=== PATIENT | male | born 1940 | race Caucasian/White ===

== ENCOUNTER 2024-02-19 11:03 | Inpatient (IN) | payer OTHER ==
[2024-02-19 12:10] LABS: #Basophils 0.09 10x3/uL (0.0-0.2); #Eosinphils 0.57 10x3/uL (0.0-0.5); #Monocytes 0.83 10x3/uL (0.0-1.1); %Basophils 1.2 % (0.0-2.0); %Eosinophils 7.7 % (0.0-6.0); %Lymphocytes 19.2 % (18.0-47.0); %Monocytes 11.2 % (0.0-10.0); %Neutrophils 60.4 % (40.0-75.0); Hematocrit 29.4 % (38.8-50.0); Hemoglobin 9.2 g/dL (13.5-17.5); Mean Corpuscular HGB CONC 31.3 g/dL (32.0-36.0); Mean Corpuscular Hemoglobin 28.5 pg (27.0-33.0); Mean Platelet Volume 9.4 fL (7.4-10.4); Platelet Count 194 10x3/uL (150-450); RBC Distribution Width 12.3 % (11.5-14.5); Red Blood Cell (RBC) Count 3.23 10x6/uL (4.32-5.72); White Blood Cell (WBC) Count 7.4 10x3/uL (3.5-10.5)
[2024-02-19 12:34] LABS: ALT (SGPT) 22 U/L (8-55); AST (SGOT) 21 U/L (5-34); Alkaline Phosphatase 52 U/L (40-110); Anion Gap 13 mmol/L (10-20); BUN (Urea Nitrogen) 59 mg/dL (8.4-25.7); Bilirubin, Total 0.3 mg/dL (0.2-1.2); Calc. Creatinine Clearance 0 mL/min (70-130); Calcium 9.4 mg/dL (7.8-10.44); Carbon Dioxide 19 mmol/L (23-31); Chloride 113 mmol/L (98-107); Estimated GFR 30; Globulin 3.6 g/dL (2.4-3.5); Glucose 168 mg/dL (83-110); Potassium 5.4 mmol/L (3.5-5.1); Protein, Total 6.6 g/dL (5.8-8.1); Sodium 140 mmol/L (136-145)
[2024-02-19] MEDS ORDERED: Insulin Regular, Human 100 UNIT/ML 10 ML VIAL ONE (14:03)
[2024-02-19] MEDS ORDERED: Acetaminophen 650 MG Suppository PR PRN (15:56)
[2024-02-19] MEDS ORDERED: Ondansetron ODT 4 MG TAB PO PRN (15:56)
[2024-02-19] MEDS ORDERED: Senokot S 8.6-50 MG TAB PO PRN (15:56)
[2024-02-19] MEDS ORDERED: Ondansetron PF 4 MG/2 ML Vial IVP PRN (15:56)
[2024-02-19] MEDS ORDERED: Acetaminophen 325 MG TAB PO PRN (15:56)
[2024-02-19] MEDS ORDERED: Glucagon 1 MG/ML KIT IM PRN (15:57)
[2024-02-19] MEDS ORDERED: Insulin Lispro 100 UNIT/ML 10 ML VIAL SC PRN (15:57)
[2024-02-19] MEDS ORDERED: Dextrose 5% in Water 1,000 ML IV PRN (15:57)
[2024-02-19 16:43] VITALS: BMI 29.2
[2024-02-19] MEDS: Lactated Ringer's 1,000 ML IV SCH (17:22)
[2024-02-19] MEDS: Piperacillin/Tazobactam 3.375 GM in Sodium Chloride 0.9% 100 ML IVPB SCH ×2 (17:23→21:57)
[2024-02-19] MEDS: Famotidine 20 MG TAB PO SCH (21:56)
[2024-02-19] MEDS: Heparin 5,000 UNITS/ML VIAL SC SCH (21:56)
[2024-02-19] MEDS: Clindamycin/D5W 600 MG in Premix 1 BAG IVPB SCH (22:16)
[2024-02-20 03:53] LABS: #Eosinphils 0.62 10x3/uL (0.0-0.5); #Monocytes 0.73 10x3/uL (0.0-1.1); #Neutrophils 3.03 10x3/uL (1.5-8.4); %Basophils 1.6 % (0.0-2.0); %Eosinophils 10.1 % (0.0-6.0); %Monocytes 11.9 % (0.0-10.0); %Neutrophils 49.2 % (40.0-75.0); Hematocrit 25.4 % (38.8-50.0); Hemoglobin 8.2 g/dL (13.5-17.5); Mean Corpuscular HGB CONC 32.3 g/dL (32.0-36.0); Mean Corpuscular Volume 89.8 fL (81.2-95.1); Mean Platelet Volume 9.6 fL (7.4-10.4); Platelet Count 176 10x3/uL (150-450); RBC Distribution Width 12.3 % (11.5-14.5); Red Blood Cell (RBC) Count 2.83 10x6/uL (4.32-5.72); White Blood Cell (WBC) Count 6.2 10x3/uL (3.5-10.5)
[2024-02-20 04:15] LABS: Anion Gap 14 mmol/L (10-20); BUN (Urea Nitrogen) 53 mg/dL (8.4-25.7); Calc. Creatinine Clearance 42 mL/min (70-130); Calcium 9.1 mg/dL (7.8-10.44); Carbon Dioxide 18 mmol/L (23-31); Chloride 114 mmol/L (98-107); Estimated GFR 35; Glucose 138 mg/dL (83-110); Potassium 4.8 mmol/L (3.5-5.1); Sodium 141 mmol/L (136-145)
[2024-02-20] MEDS: Dextrose 50% Abboject 50 ML SYRINGE SLOW IVP PRN (06:36)
[2024-02-20] MEDS ORDERED: Bupivacaine PF 0.5% 30 ML VIAL ONE (07:22)
[2024-02-20] MEDS ORDERED: fentaNYL 50 mcg/mL 1 mL Vial ONE (09:09)
[2024-02-20] MEDS ORDERED: Lidocaine 2% PF 5 ML VIAL ONE (09:09)
[2024-02-20] MEDS ORDERED: Ondansetron PF 4 MG/2 ML Vial ONE (09:09)
[2024-02-20] MEDS ORDERED: Dexamethasone 4 mg/ml Vial ONE (09:09)
[2024-02-20 16:59] VITALS: BMI 29.2
[2024-02-20] MEDS: Insulin Lispro 100 UNIT/ML 10 ML VIAL SC PRN (17:13)
[2024-02-20 21:35] VITALS: BP 162/79; TEMP 98.3
[2024-02-21] MEDS ORDERED: Calcitriol 0.25 MCG CAP PO SCH (09:00)
[2024-02-21] MEDS ORDERED: Glimepiride 4 MG TAB PO SCH (09:00)
[2024-02-21] MEDS ORDERED: hydrALAZINE 25 MG TAB PO SCH (09:00)
[2024-02-21] MEDS ORDERED: Terazosin HCl 5 MG CAP PO SCH (09:00)
[2024-02-21] MEDS ORDERED: Lisinopril 20 MG TAB PO SCH (09:00)
[2024-02-21] MEDS ORDERED: Furosemide 40 MG TAB PO SCH (09:00)
[2024-02-21] MEDS ORDERED: Spironolactone 25 MG TAB PO SCH (09:00)
[2024-02-21] MEDS ORDERED: Gabapentin 100 MG CAP PO SCH (09:00)
[2024-02-21] MEDS ORDERED: Amlodipine 10 MG TAB PO SCH (09:00)
== END 2024-02-20 20:45 | disposition home or self-care (01) | DRG 617 ==
LOC: CSHERS 11:03 → CSHTELE 16:38
PROVIDERS: ADMIT Family Medicine; ATTEND Nurse Practitioner Family
PROC: 0Y6Q0Z3 Detachment at Left 1st Toe, Low, Open Approach (ICD-10-PCS; principal; 2024-02-20)
DX: E11.69 Type 2 diabetes mellitus with other specified complication (principal); M86.9 Osteomyelitis, unspecified; E11.42 Type 2 diabetes mellitus with diabetic polyneuropathy; E11.22 Type 2 diabetes mellitus with diabetic chronic kidney disease; N18.30 Chronic kidney disease, stage 3 unspecified; I12.9 Hypertensive chronic kidney disease with stage 1 through stage 4 chronic kidney disease, or unspecified chronic kidney disease; L03.032 Cellulitis of left toe; E78.5 Hyperlipidemia, unspecified; Z79.899 Other long term (current) drug therapy; M06.9 Rheumatoid arthritis, unspecified; D63.1 Anemia in chronic kidney disease; Z98.49 Cataract extraction status, unspecified eye; Z98.890 Other specified postprocedural states; Z87.891 Personal history of nicotine dependence; E87.5 Hyperkalemia
CPT/HCPCS: 36415; 36416; 80048; 80053; 82570; 83970; 84156; 85025; 86140; 87040; 88305; 88311; 94760; 96374; 97139; J0665; J1100; J1644; J1815; J2001; J2405; J2543; J3010; J3490; J7120; J7999

== ENCOUNTER 2024-03-19 08:07 | Outpatient (CLI) | payer OTHER | END 2024-03-19 08:08 | disposition home or self-care (01) | LOC: CSHWCC 08:07 | PROVIDERS: ATTEND Nurse Practitioner Family | DX: E11.621 Type 2 diabetes mellitus with foot ulcer (principal); L97.522 Non-pressure chronic ulcer of other part of left foot with fat layer exposed; M06.9 Rheumatoid arthritis, unspecified | CPT/HCPCS: 11042; G0463; 99214 ==

== ENCOUNTER 2024-03-26 10:04 | Outpatient (CLI) | payer OTHER | END 2024-03-26 10:05 | disposition home or self-care (01) | LOC: CSHWCC 10:04 | PROVIDERS: ATTEND Nurse Practitioner Family | DX: E11.621 Type 2 diabetes mellitus with foot ulcer (principal); L97.522 Non-pressure chronic ulcer of other part of left foot with fat layer exposed; M06.9 Rheumatoid arthritis, unspecified | CPT/HCPCS: 11042 ==

== ENCOUNTER 2024-04-06 14:12 | Outpatient (CLI) | payer OTHER | END 2024-04-06 14:13 | disposition home or self-care (01) | LOC: CSHWCC 14:12 | PROVIDERS: ATTEND Nurse Practitioner Family | DX: E11.621 Type 2 diabetes mellitus with foot ulcer (principal); L97.522 Non-pressure chronic ulcer of other part of left foot with fat layer exposed; M06.9 Rheumatoid arthritis, unspecified | CPT/HCPCS: 11042; 97605 ==

== ENCOUNTER 2024-04-13 11:46 | Outpatient (CLI) | payer OTHER | END 2024-04-13 11:47 | disposition home or self-care (01) | LOC: CSHWCC 11:46 | PROVIDERS: ATTEND Nurse Practitioner Family | DX: E11.621 Type 2 diabetes mellitus with foot ulcer (principal); L97.522 Non-pressure chronic ulcer of other part of left foot with fat layer exposed; M06.9 Rheumatoid arthritis, unspecified | CPT/HCPCS: 11044; 99212; G0463 ==

== ENCOUNTER 2024-04-20 12:36 | Outpatient (CLI) | payer OTHER | END 2024-04-20 12:37 | disposition home or self-care (01) | LOC: CSHWCC 12:36 | PROVIDERS: ATTEND Nurse Practitioner Family | DX: E11.621 Type 2 diabetes mellitus with foot ulcer (principal); L97.522 Non-pressure chronic ulcer of other part of left foot with fat layer exposed; M06.9 Rheumatoid arthritis, unspecified | CPT/HCPCS: 11044; 97605; G0463; 99212 ==

== ENCOUNTER 2024-04-27 09:19 | Outpatient (CLI) | payer OTHER | END 2024-04-27 09:20 | disposition home or self-care (01) | LOC: CSHWCC 09:19 | PROVIDERS: ATTEND Nurse Practitioner Family | DX: E11.621 Type 2 diabetes mellitus with foot ulcer (principal); L97.522 Non-pressure chronic ulcer of other part of left foot with fat layer exposed; M06.9 Rheumatoid arthritis, unspecified | CPT/HCPCS: 11042; 87070; 87077; 87186; 87205; 97605; 99212; G0463 ==

== ENCOUNTER 2024-05-04 10:38 | Outpatient (CLI) | payer OTHER | END 2024-05-04 10:39 | disposition home or self-care (01) | LOC: CSHWCC 10:38 | PROVIDERS: ATTEND Nurse Practitioner Family | DX: E11.621 Type 2 diabetes mellitus with foot ulcer (principal); L97.522 Non-pressure chronic ulcer of other part of left foot with fat layer exposed; L03.116 Cellulitis of left lower limb; M06.9 Rheumatoid arthritis, unspecified; M86.172 Other acute osteomyelitis, left ankle and foot | CPT/HCPCS: 11042; 97605 ==

== ENCOUNTER 2024-05-12 09:01 | Outpatient (CLI) | payer OTHER | END 2024-05-12 09:02 | disposition home or self-care (01) | LOC: CSHWCC 09:01 | PROVIDERS: ATTEND Nurse Practitioner Family | DX: E11.621 Type 2 diabetes mellitus with foot ulcer (principal); L97.522 Non-pressure chronic ulcer of other part of left foot with fat layer exposed; M06.9 Rheumatoid arthritis, unspecified; L03.116 Cellulitis of left lower limb; M86.172 Other acute osteomyelitis, left ankle and foot | CPT/HCPCS: 11042 ==

== ENCOUNTER 2024-05-20 11:15 | Outpatient (CLI) | payer OTHER | END 2024-05-20 11:16 | disposition home or self-care (01) | LOC: CSHWCC 11:15 | PROVIDERS: ATTEND Family Medicine | DX: E11.621 Type 2 diabetes mellitus with foot ulcer (principal); L97.522 Non-pressure chronic ulcer of other part of left foot with fat layer exposed; M06.9 Rheumatoid arthritis, unspecified; L03.116 Cellulitis of left lower limb; M86.172 Other acute osteomyelitis, left ankle and foot | CPT/HCPCS: 11042 ==

== ENCOUNTER 2024-05-26 12:09 | Outpatient (CLI) | payer OTHER | END 2024-05-26 12:10 | disposition home or self-care (01) | LOC: CSHWCC 12:09 | PROVIDERS: ATTEND Nurse Practitioner Family | DX: E11.621 Type 2 diabetes mellitus with foot ulcer (principal); L97.522 Non-pressure chronic ulcer of other part of left foot with fat layer exposed; M06.9 Rheumatoid arthritis, unspecified; M86.172 Other acute osteomyelitis, left ankle and foot | CPT/HCPCS: 11042; G0463; 99212 ==